=== PATIENT | male | born 1995 | race Caucasian/White ===

== ENCOUNTER → 2016-11-19 | Outpatient (CLI) | payer OTHER ==
--- NOTE | 2016-11-19 17:12 | CPEEG ---
FOUR-HOUR VIDEO EEG. DATE OF STUDY: 11/19/2016 INTERPRETATION: This 4-hour video EEG recording is normal. There were no potentially epileptogenic abnormalities present during the awake or sleep recordings. During the video EEG monitoring victor hugo dailey, the patient did not have any clinical events. REPORT: This 4-hour video EEG contains 10 Hz alpha activity to the posterior head regions. There w as no abnormal activation at rest, during photic stimulation, or hyperventilation. The patient janny me drowsy and fell into sustained sleep during the study. There was no abnormal activation during d rowsiness, sleep, or during times of arousal. During the video EEG monitoring session, the patient did not have any clinical events. /[id number]/MODL
== END ==
LOC: FCPNEURO 09:25
PROVIDERS: ATTEND Psychiatry & Neurology Neurology
DX: R56.9 Unspecified convulsions (principal)